=== PATIENT | male | born 1930 | race Caucasian/White ===

== ENCOUNTER → 2017-01-10 | Outpatient (CLI) | payer OTHER ==
[~2017-01-10] VITALS: Ht 180.3 cm; Wt 80.7 kg
[~2017-01-10] MED LIST: ACIDOPHILUS1 EAC3 PO; ALEVE220 M1 PO; ALEVE220 MG PO; ALPHAGAN P10 ML OP; AMBIEN 5 MG TABL5 M1 PO; AMBIEN 5 MG TABL5 MG PO; ATENOLOL 25 MG25 M1 PO; CLOTRIMAZOLE 1%15 G1 TOP; CYMBALTA20 MG PO; DILTIAZEM ER240 MG PO; DULCOLAX5 MG PO; ELAVIL PO; FLOMAX PO; FLOMAX0.4 MG PO; GLUCAGON EMERGEN1 MG IJ; GLUCOPHAGE1000 MG PO; GLUCOSE 40% GEL PO; HYDROCHLOROTH12.5 M2 PO; HYDROCODONE-AP1 EA15 PO; HYDROCORTISON28.4 GM; IBUPROFEN 200200 M1 PO; INTRATHECAL MED; IRON PO; IRON325 PO; JANUMET 50-1,01 EACH PO; JANUMET 50-5001 EACH PO; JANUMET XR 1001 EACH PO; JANUVIA50 MG PO; LAXATIVE5 M1 PO; LOPRESSOR 50 MG50 M1 PO; LOPRESSOR50 PO; LUMIGAN2.5 M1 OP; MAPAP325 MG PO; MELADOX3 MG PO; METFORMIN HCL500 MG PO; MILK OF MA2400 MG/10 PO; MIRALAX255 GM PO; MORPHINE; MULTAQ 400 MG400 MG PO; NOVOLOG100 UNIT/1 SQ; NOVOLOG100 UNIT/1 SUBQ; NYSTATIN; ONE DAILY COMP1 EAC1 PO; ONE DAILY FOR1 EACH PO; OXYCODONE HCL15 MG PO; OXYCODONE-ACET1 EAC2 PO; OXYCODONE-ACET1 EACH PO; PACERONE 200 M200 MG PO; PANTOPRAZOLE SO40 MG PO; PEPCID AC20 M1 PO; PERCOCET 10-321 EACH PO; PERCOCET PO; PROCTOCORT28.35 GM; RESTORIL15 MG PO; RESTORIL7.5 MG PO; ROXICODONE15 M1 PO; SANTYL OINTMENT30 G1 TP; TAMSULOSIN HCL0.4 MG PO; TENORMIN25 MG PO; TINACTIN108 GM TP; TOPROL XL25 MG PO; TOPROL XL50 MG PO; TRIAMCIN; TUMS CHEWA500 MG/11 PO; TYLENOL325 MG PO; VERAPAMIL E.R240 M1 PO; VERAPAMIL HCL120 MG PO; VITAMIN D PO; WOMEN'S LAXATIVE5 M1 PO; ZOLOFT50 MG PO; [UNRECOGNIZED DRUG - OTHER] IM
--- NOTE | ~2017-01-10 | HPC ---
[facility] [place] [address] PAIN MANAGEMENT CONSULTATION Name: SMITHA BRADSHAW Room #: REG [facility] Sophie.#: [id number] Admission: 01/10/17 Attend Phys: Flakito Gagnon MD Discharge: Date of : [birth year] Report #: [id number] THIS REPORT FOR: //name// CC: Angelo Gagnon DATE OF SERVICE: 01/10/2017 Followup visit for chronic back pain, management of intrathecal infusion pump. The patient returns to clinic today with his son. He seems much less depressed today. He is smiling and seems more relaxed. He denies any significant health changes, but his pain he says has been a bit worse. He asked if we can increase his intrathecal infusion pump. His infusion pump is containing morphine and bupivacaine, has been the same dose for some time. It is quite low and I think we have room to increase this dose without problem. We spent 15 minutes today discussing the replacement of his intrathecal pump. At his advanced age a return to the operative room is of course concerning, but I do not want him to go through withdrawal. His son feels that the pump has been very helpful in managing the pain with few side effects. PHYSICAL EXAMINATION: Pleasant, alert and oriented. Much less depressed than before. He is in a wheelchair. He is quite weak. He was able to stand but only with some assistance. His blood pressure is 111/65, heart rate 66, BMI is 24.8. His kyphoscoliosis the spine, which is tender. IMPRESSION: 1. Chronic low back pain with radiculopathy. 2. History of multiple compression fractures. 3. Intrathecal pump management with refill. PROCEDURE: Skin was prepped with chloraprep. Skin anesthetized with 22-gauge non-coring needle advanced in the pump. Old medication removed and discarded. Pump was refilled with a combination of morphine and bupivacaine. I increased the infusion by 18%. Refilled is planned in 6 months. We also plan on replacing his battery around that time. Son, Freeman will call to try and schedule a time that is conveniently for him and family. By: [id number] Flakito Gagnon MD /nt
[2017-01-10 13:30] VITALS: BP 111/65
== END | disposition home or self-care (01) ==
LOC: PAIN 12-24 11:13
DX: M54.10 Radiculopathy, site unspecified (principal); G89.29 Other chronic pain; I10 Essential (primary) hypertension; M19.90 Unspecified osteoarthritis, unspecified site; Z87.891 Personal history of nicotine dependence

== ENCOUNTER → 2018-01-23 | Outpatient (CLI) | payer OTHER ==
[~2018-01-23] VITALS: Ht 175.3 cm; Wt 80.7 kg
[~2018-01-23] MED LIST changes: +AMOX TR-K CLV1 EAC4 PO; +CARDIZEM30 MG PO; +HYDROCODON-ACE1 EAC7 PO; +HYDROCODONE-AP1 EAC6 PO; +JANUVIA 50 MG T50 M1 PO; +MIRALAX17 GM PO; +MOBIC7.5 MG PO; +OMEPRAZOLE 20 M20 M1 PO; +TUMS PO; +XANAX 0.5 MG0.5 MG PO
--- NOTE | ~2018-01-23 | HPC ---
[facility] [address] [place] [address] PAIN MANAGEMENT CONSULTATION Name: SMITHA BRADSHAW Room #: REG [facility] Sophie.#: [id number] Admission: 01/23/18 Attend Phys: Flakito Gagnon MD Discharge: Date of : [birth year] Report #: [id number] THIS REPORT FOR: //name// CC: Angelo Gagnon DATE OF SERVICE: 01/23/2018 DATE OF REGISTRATION: 01/23/2018 Followup visit for chronic pain and management of intrathecal infusion pump. HISTORY OF PRESENT ILLNESS: The patient returns to the pain clinic today with his son. We have been running his intrathecal pump at minimum rate now since his last visit few months ago. He has done okay. His pain is a 4, mostly in his right lateral thigh related I am sure to some degenerative changes with radicular component. He does not walk much, standing increases his pain. He is living at [facility]. He complains about the cost at $300 a day. The food is poor. He does not think he is getting as good of care as he would like. He takes a small amount of hydrocodone as needed for pain 5 mg. Mostly this is at bedtime, but it could be taken more often during the day if needed. It typically puts him right to sleep. All medications were reviewed and reconciled from the electronic medical record. No changes, but I have agreed to renew his hydrocodone. PHYSICAL EXAMINATION: He is pleasant. He is able to give a reasonable history. Blood pressure 120/65, heart rate 77, respirations 16. He is kyphotic and it is difficult for him to stand independently. His height is 59 inches, 178 pounds his weight, BMI 26.3. His pump is in the right lower abdomen and nontender. He has positive straight leg raising on the right. No pain with internal and external rotation of the hip. Left-sided straight leg raising reproduces mild pain, but less than the radicular pain noted on the right. Generalized weakness is noted throughout the upper and lower extremities consistent with age. IMPRESSION: 1. Chronic back pain with radiculopathy on the right L5 distribution with kyphosis. 2. Management of intrathecal infusion pump. 3. Management of opioid medication for this elderly gentleman under terms of an agreement. [address] [address] PAIN MANAGEMENT CONSULTATION Name: SMITHA BRADSHAW Room #: REG [facility] Nadege#: [id number] Admission: 01/23/18 Attend Phys: Flakito Gagnon MD Discharge: Date of : [birth year] Report #: [id number] PROCEDURE: Reprogram alarm on intrathecal pump. INDICATION: We have decided that we will transition him off of intrathecal opioid medication and idle the pump at some point. He is not felt to be a good surgical candidate and we have been able to slowly wean his medication down to minimum rate. Today's appointment is to silence or extend the alarms. We were unable to turn off the alarms completely. I do not want to turn off the pump. I would like to continue it at minimum rate, which is providing him with 0.17 mg of morphine per day along with a little bit of bupivacaine. I do think that this may be helping to some degree and will ride this out. The pump was interrogated and I changed his low reservoir volume to 0.3 mL. This will continue the pump running at an interval with exhaustion of the pump volume in another 667 days. If the pump continues to function through its alarm date as it may given the slow rate, this will carry him into 2020. Prescription was also written for hydrocodone 5/325 to be taken as needed up to 3 times a day. Side effects including constipation will be managed with typical stool softeners and laxatives. I also discussed with him coming back at sometime in the next 2-3 weeks for an epidural steroid injection. We should be able to provide some relief of the right leg for his radicular component with the L5-S1 or an L4-L5 epidural injection. By: [id number] Flakito Gagnon MD /nt
[2018-01-23 09:20] VITALS: BP 120/65
== END | disposition home or self-care (01) ==
LOC: PAIN 07:29
DX: Z45.1 Encounter for adjustment and management of infusion pump (principal); M54.16 Radiculopathy, lumbar region; G89.29 Other chronic pain; Z79.891 Long term (current) use of opiate analgesic; Z87.891 Personal history of nicotine dependence; Z88.2 Allergy status to sulfonamides; Z79.899 Other long term (current) drug therapy

== ENCOUNTER → 2018-07-05 | Outpatient (CLI) | payer OTHER ==
[~2018-07-05] VITALS: Ht 172.7 cm; Wt 81.6 kg
[~2018-07-05] MED LIST changes: +DURAGESIC1 EAC2 TRANSDERM
--- NOTE | ~2018-07-05 | HPC ---
[facility] [address] [place] [address] PAIN MANAGEMENT CONSULTATION Name: SMITHA BRADSHAW Room #: REG [facility] Sophie.#: [id number] Admission: 07/05/18 Attend Phys: Flakito Gagnon MD Discharge: Date of : [birth year] Report #: [id number] THIS REPORT FOR: //name// CC: Angelo Gagnon DATE OF SERVICE: 07/05/2018 REASON FOR VISIT: Follow up for severe lumbar spondylosis and chronic intractable back pain. HISTORY OF PRESENT ILLNESS: The patient is here today with his son. We have been able to transition him off of intrathecal medication. We will not need to replace the pump. It has been idle. His pain intensity is 4/10. His biggest concern right now is living in an extended care facility with special needs for getting in and out of bed, hygiene and help with all activities of daily living. This is depressing for him and he cried several times at this clinic today. Overall, I think his pain medication has been adequate, although he sometimes does not get it or if he forgets to ask for it, he will not get it. We talked a bit today about other options. Baseline opioid such as a fentanyl patch was considered as a reasonable option for someone who is concerned that her medication is not being provided. His son is in favor of this because he is concerned that his father may be uncomfortable and would not get medication that he needs. Clearly medications we provide for the patient are palliative at this time. We reviewed PQRS. He has diffuse osteoarthritis involving many large joints, hips and knees. He is at fall risk and needs help with all movements due to his severe spinal deformity. He is not hypertensive. He is not on opioid agreement with our clinic. He is at low risk for addiction. He has a functional assessment tool of 60/70. He does not use tobacco or alcohol. His BMI is 27.4. PHYSICAL EXAMINATION: Today, he was tearful several times during the visit, mostly I think just under the circumstances of living so long and having such significant needs. His blood pressure is 113/61, heart rate 89, BMI 27. He has marked curvature of the spine, tenderness along the upper and lower lumbar spine. Tenderness across the shoulders. He has generalized weakness in all 4 extremities. Mood is depressed. IMPRESSION: 1. Chronic intractable back pain with marked kyphoscoliosis. 2. Management of high risk medications under terms of written opioid agreement. PLAN: 1. I have initiated fentanyl patch at 25 mcg q. [address] [address] PAIN MANAGEMENT CONSULTATION Name: SMITHA BRADSHAW Room #: REG [facility]#: [id number] Admission: 07/05/18 Attend Phys: Flakito Gagnon MD Discharge: Date of : [birth year] Report #: [id number] 2. He can still take hydrocodone for breakthrough and I wrote on the order for them to ask and provide it for him as needed, so they will not be in misery. 3. Follow up in the pain clinic in 3 months. By: [id number] Flakito Gagnon MD /rolando
[2018-07-05 10:51] VITALS: BP 113/61
== END ==
LOC: PAIN 06:51
DX: M47.816 Spondylosis without myelopathy or radiculopathy, lumbar region (principal); M41.86 Other forms of scoliosis, lumbar region; G89.4 Chronic pain syndrome; Z79.891 Long term (current) use of opiate analgesic